=== PATIENT | female | born 1990 | race Caucasian/White ===

== ENCOUNTER 2016-12-19 05:58 | Inpatient (IN) ==
[2016-12-19] MEDS ORDERED: OXYTOCIN DRIP 30 UNIT/500 ML ML IV PRN (06:16)
[2016-12-19] MEDS ORDERED: MAG-AL + SIM ORAL LIQUID 30ml PO PRN ×2 (06:16→15:12)
[2016-12-19] MEDS ORDERED: CARBOPROST 250 MCG/ML INJECTION IM PRN (06:16)
[2016-12-19] MEDS ORDERED: METHYLERGONOVINE 0.2 MG/ML INJECTION IM PRN (06:16)
[2016-12-19] MEDS ORDERED: CALCIUM CARBONATE Chewable 500mg TABLET PO PRN ×2 (06:16→15:12)
[2016-12-19] MEDS ORDERED: ACETAMINOPHEN 500 MG TABLET PO PRN ×2 (06:16→15:12)
[2016-12-19] MEDS ORDERED: LIDOCAINE 1% (10mg/ml) 2mL INJ PF SDV ID PRN (06:16)
[2016-12-19] MEDS ORDERED: D5LR 1,000 ML IV PRN (06:16)
[2016-12-19] MEDS: LR 1,000 ML IV PRN ×3 (07:03→12:57)
[2016-12-19 07:26] VITALS: BMI 32.3
[2016-12-19] MEDS ORDERED: ONDANSETRON 4 MG/2 ML INJECTION IVP PRN (11:31)
[2016-12-19] MEDS ORDERED: DiphenhydrAMINE 50 MG/ML INJECTION IVP PRN (11:31)
[2016-12-19] MEDS ORDERED: NALOXONE 0.4 MG/ML INJECTION IVP PRN (11:31)
[2016-12-19] MEDS ORDERED: ROPIVACAINE 1% 10MG/ML INJ 200 MG, SUFentanil 50 MCG in NS 100 ML EPI PRN (11:31)
--- NOTE | 2016-12-19 11:31 | Anesthesia Preoperative Report ---
Anesthesia Epidural/Spinal Rec - Date and Time Date: 12/19/16 Procedure: Labor Epidural Plan: Epidural - Vital Signs Vital Signs: Temperature 98.1 F 12/19/16 06:48 Pulse Rate 75 12/19/16 06:48 Respiratory Rate 16 12/19/16 06:48 Blood Pressure 114/68 12/19/16 06:48 Pulse Oximetry 98 12/19/16 06:48 /Para: P:2 - Medictaions & Allergies Inpatient Medications: Current Medications Acetaminophen (Tylenol) 500 - 1,000 mg PO Q4H PRN PRN Reason: Pain Al Hydroxide/Mg Hydroxide (Maalox Plus) 30 ml PO Q3H PRN PRN Reason: Indigestion Calcium Carbonate (Tums) 500 - 1,000 mg PO Q2H PRN PRN Reason: Indigestion Carboprost Tromethamine (Hemabate) 250 mcg IM O PRN PRN Reason: .Downtime Dextrose/Lactated Ringer's (Dextrose 5%-Lactated Ringers) 1,000 mls @ 125 mls/ hr IV .Q8H PRN PRN Reason: Labor Last Admin: 12/19/16 07:04 Dose: 123 mls/hr Lactated Ringer's (Lactated Ringers) 1,000 mls @ 999 mls/hr IV .Q1H1M PRN Last Admin: 12/19/16 11:03 Dose: 999 mls/hr Oxytocin (Pitocin Drip) 30 unit in 500 mls @ 2 mls/hr IV .Q24H PRN; Protocol PRN Reason: Induction/Augmentation Last Admin: 12/19/16 07:04 Dose: 2 mls/hr Lidocaine HCl (Xylocaine-Mpf 1% Vial) 0.2 mg ID O PRN PRN Reason: IV Start Methylergonovine Maleate (Methergine) 0.2 mg IM O PRN Misoprostol (Cytotec) 800 mcg ID ONCE PRN Allergies/Adverse Reactions: Allergies Allergy/AdvReac Type Severity Reaction Status Date / Time lactose AdvReac Diarrhea Verified 12/19/16 06:45 NKDA Allergy Unknown Uncoded 12/19/16 06:45 - Home Medications Home Medications: Home Medications Medication Instructions Recorded Confirmed Type Pnv95/Ferrous Fumarate/FA 1 tab PO DAILY #0 tab 04/15/15 12/19/16 History [ Tablet] CALCIUM CARBONATE Chewable [Tums] 2 tab PO CHEW PRN PRN 12/19/16 12/19/16 History - Medical History Respiratory: DENIES: Asthma Cardiovascular: DENIES: Hypertension Gastrointestional: DENIES: Gastroesophageal Reflux Disease Renal/Endocrine: DENIES: Diabetes Mellitus Type 2 Other History: Reports: Now - Surgical History Anesthesia Reactions: None Hx Family Anesthesia Reaction: No History of Motion Sickness: No - Social History Second Hand Exposure: No Substance Use Type: does not use Alcohol Intake Frequency: does not drink - Pertinent Findings Lab Data: CBC and BMP 12/19/16 06:43 - Physical Exam Respiratory Exam: lungs clear, bilateral breath sounds equal Cardiovascular Exam: regular rate and rhythm - Airway Assessment Mallampati Score: II TMD: 2 Fingerbreadths Neck Extension: good Overall Assessment: no airway concerns - ASA ASA Score: 2 - Discussion Discussion: Discussed risks/options/alternatives of anesthesia and questions answered. Patient consents. Nursing pain assessment noted. Anesthesia Discussion: spouse Attestation Statement: Prior to the delivery of any anesthetic medication, I examined the patient, developed the plan, obtained the patient's consent and discussed the risk and benefits of the procedure with the patient/guardian.
[2016-12-19] MEDS ORDERED: BENZOCAINE 20% SPRAY 0.5 ML MM ONE (15:12)
[2016-12-19] MEDS ORDERED: HYDROCORTISONE 2.5% CREAM 30gm RECTALLY PRN (15:12)
[2016-12-19] MEDS ORDERED: OXYTOCIN DRIP 30 UNIT/500 ML ML IV SCH (15:12)
[2016-12-19] MEDS ORDERED: DiphenhydrAMINE 25 MG CAPSULE PO PRN (15:12)
[2016-12-19] MEDS: IBUPROFEN 800 MG TABLET PO PRN (18:11)
[2016-12-20] MEDS: IBUPROFEN 800 MG TABLET PO PRN (06:05)
[2016-12-20 06:12] VITALS: RESP 16
--- NOTE | 2016-12-20 08:11 | OB/GYN Progress Note ---
OB-PP Progress Note - General PPD1 - Subjective Date: 12/20/16 Lochia: Minimal Pain: moderate Voiding: voiding Nausea or Vomiting Present: No - Objective Vital Signs: Last Vital Signs Temp 97.7 F 12/20/16 06:00 Pulse 69 12/20/16 06:00 Resp 16 12/20/16 06:00 BP 122/65 12/20/16 06:00 Pulse Ox 97 12/20/16 06:00 Urine Output: good General: alert and oriented Abdomen: fundus firm Extremities: non-tender Edema: none Laboratory: Laboratory Results - last 24 hr 12/20/16 06:41 WBC 8.3 RBC 3.75 L Hgb 11.4 L Hct 35.0 L MCV 93.3 MCH 30.4 MCHC 32.6 RDW Std Deviation 43.3 Plt Count 154 MPV 10.0 - Assessment Assessment: - Plan Plan: routine care, discharge home (Patient would like to be dism. Requests both Ibuprofen and [place] for home use. RX given. )
--- NOTE | 2016-12-20 08:14 | Discharge Instructions ---
Discharge Plan - Med Rec/Dispo Prescriptions: New Hydrocodone/APAP 5/325 [[place] 5/325] 1 - 2 tab PO Q4H PRN #20 tab PRN Reason: Pain Ibuprofen [Motrin] 800 mg PO Q8H PRN #50 tab PRN Reason: Pain Continue Pnv95/Ferrous Fumarate/FA [ Tablet] 1 tab PO DAILY #0 tab Discontinued CALCIUM CARBONATE Chewable [Tums] 2 tab PO CHEW PRN PRN PRN Reason: Heartburn Discharge Instructions/Outpatient Orders: Final Provider Discharge Instructions Location: Determined By Patient - Disposition 01 Discharged Home, Self-Care
[2016-12-20] MEDS: HYDROCODONE/APAP 5mg/325mg TABLET PO PRN ×2 (08:57→13:38)
[2016-12-20] MEDS ORDERED: DOCUSATE CALCIUM 240 MG CAPSULE PO SCH (09:00)
--- NOTE | 2016-12-20 10:09 | Anesthesia Postoperative Note ---
- Date and Time Date: 12/20/16 Time: 10:07 - Status Patient Participated in Evaluation: Patient Participated in Person Vital Signs: Temperature 97.7 F 12/20/16 06:00 Pulse Rate 69 12/20/16 06:00 Respiratory Rate 16 12/20/16 06:00 Blood Pressure 122/65 12/20/16 06:00 Pulse Oximetry 97 12/20/16 06:00 Respiratory Function: Airway Patent Cardiovascular Function: Regular Pulse Mental Status: Alert and Oriented Pain Intensity: 2 Hydration: Taking PO Fluids Complications During Recover: None Apparent Post Anesthesia Care Notes: full motor and sensation returned. no complication - Follow-Up Instructions Instructions: Per Surgeon
--- NOTE | 2016-12-20 10:58 | Progress Note ---
OB PP Progress Note Free Text - Date Date: 12/20/16 - Progress Note Progress Note: doing well desires dc q&a-krb
--- NOTE | 2016-12-20 11:54 | Labor and Delivery Note ---
DATE OF DELIVERY: 12/19/2016 DIAGNOSES 1. 26-year-old white female, G3, P2, at 39.3 weeks gestational age. 2. Pitocin induction of labor for logistics. 3. Artificial rupture of membranes. 4. Epidural anesthesia. 5. Spontaneous vaginal delivery. 6. Female infant, 9 Apgars, 3395 g (Magdalena Veras). This is a patient I induced for logistics. Pitocin reached a maximum of 20 milliunits a minute. Patient made it to complete dilation and then we turned the Pitocin off and labored down. Then we began pushing. We had a spontaneous vaginal delivery at 1415 hours. was bulb suctioned after delivery of the head and then again after delivery of the body. Cord was doubly clamped and cut and it was allowed to drain for about a minute. Placenta delivered spontaneously and was intact. Infant was initially placed on the mother's abdomen. Mother is . MTDD
[2016-12-20 14:28] VITALS: BP 103/56; PULSE 73; TEMP 97.9; O2SAT 96
== END 2016-12-20 15:12 | disposition home or self-care (01) | DRG 775 ==
LOC: MC 05:58
PROVIDERS: ADMIT Obstetrics & Gynecology; ATTEND Obstetrics & Gynecology